=== PATIENT | male | born 1930 | race Caucasian/White ===

== ENCOUNTER 2021-12-07 11:41 | Emergency (ER) | payer BC ==
[~2021-12-07] VITALS: Ht 154.9 cm; Wt 95.3 kg
[2021-12-07] MEDS ORDERED: ELIQUIS5 MG PO (12:49)
[2021-12-07] MEDS ORDERED: ARICEPT5 MG PO (12:49)
[2021-12-07] MEDS ORDERED: FLECAINIDE ACET50 MG PO (12:49)
[2021-12-07] MEDS ORDERED: PREGABALIN75 MG PO (12:50)
== END 2021-12-07 15:50 | disposition home or self-care (01) ==
LOC: ER 11:41
DX: I48.91 Unspecified atrial fibrillation (principal); I10 Essential (primary) hypertension; R00.2 Palpitations